=== PATIENT | female | born 1990 | race Caucasian/White ===

== ENCOUNTER 2017-09-18 18:24 | Emergency (ER) | payer SELFPAY ==
[~2017-09-18] VITALS: Ht 167.6 cm; Wt 59.0 kg
[2017-09-18 19:16] VITALS: Ht 167.6 cm; Wt 59.0 kg
[2017-09-18] MEDS ORDERED: ACETAMINOPHEN 325 MG TAB PO ONE (21:30)
--- NOTE | 2017-09-18 21:59 | RADRPT ---
PROCEDURE: XR Left humerus CLINICAL INDICATION: Left arm pain TECHNIQUE: AP and lateral radiographs were submitted. COMPARISON: None FINDINGS: Osseous structures: appear well mineralized and intact with no fracture or osseous destruction evid ent. Joint spaces: are well maintained with no significant erosion or spurring evident. There is no sig nificant joint effusion Soft tissues: appear unremarkable. IMPRESSION: Unremarkable left humerus. Physician Av Date Time Electronically viewed and signed by Virginia Lauren Physician on 09/18/2017 21:59 /
[2017-09-18] MEDS ORDERED: ACET500C5 PO (22:13)
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
== END 2017-09-18 22:18 | disposition home or self-care (01) ==
LOC: FTE 18:24
DX: S40.812A Abrasion of left upper arm, initial encounter (principal); V49.40XA Driver injured in collision with unspecified motor vehicles in traffic accident, initial encounter
CPT/HCPCS: 73060